=== PATIENT | female | born 1960 | race Caucasian/White ===

== ENCOUNTER 2016-04-18 16:00 | Outpatient (RCR) | payer BC | END 2016-06-06 10:26 | disposition home or self-care (01) | LOC: PT 16:00 | DX: M54.5 Low back pain (principal) ==

== ENCOUNTER → 2016-05-24 | Outpatient (CLI) | payer BC | END | disposition home or self-care (01) | LOC: PT 11:11 ==

== ENCOUNTER 2016-06-18 12:50 | Outpatient (RCR) | payer BC | END 2016-09-16 | disposition home or self-care (01) | LOC: PT | DX: M16.12 Unilateral primary osteoarthritis, left hip (principal); Z96.642 Presence of left artificial hip joint ==

== ENCOUNTER → 2016-12-20 | Outpatient (CLI) | payer BC | LOC: LAB 12:02 | DX: E03.9 Hypothyroidism, unspecified (principal); F41.8 Other specified anxiety disorders ==

== ENCOUNTER → 2017-03-29 | Outpatient (CLI) | payer BC | LOC: LAB 12:08 | DX: E03.4 Atrophy of thyroid (acquired) (principal) ==

== ENCOUNTER → 2017-06-17 | Outpatient (CLI) | payer OTHER ==
[2017-06-17 12:14] LABS: URINE APPEARANCE HAZY; URINE BILIRUBIN NEGATIVE (NEGATIVE); URINE BLOOD 50 ery/uL (NEGATIVE); URINE COLOR YELLOW; URINE GLUCOSE NEGATIVE (NEGATIVE); URINE KETONE NEGATIVE (NEGATIVE); URINE LEUKOCYTE ESTERASE NEGATIVE (NEGATIVE); URINE NITRATE NEGATIVE (NEGATIVE); URINE PROTEIN(semi-quant) NEGATIVE (NEGATIVE); URINE UROBILINOGEN NORMAL (NORMAL); URINE WBC 0-1 /hpf (0-3)
== END ==
LOC: LAB 11:43 → RAD 11:43
PROVIDERS: Family Medicine
DX: N32.89 Other specified disorders of bladder (principal); N28.82 Megaloureter; R30.0 Dysuria; K50.90 Crohn's disease, unspecified, without complications; R31.9 Hematuria, unspecified; Z96.643 Presence of artificial hip joint, bilateral; Z90.49 Acquired absence of other specified parts of digestive tract; Z90.710 Acquired absence of both cervix and uterus

== ENCOUNTER → 2017-06-19 | Outpatient (CLI) | payer OTHER ==
[2017-06-19 14:20] LABS: EOS # 0.1 (0.04-0.40); EOS % 0.7 % (1.0-5.0); HEMOGLOBIN 14.8 g/dL (12.5-16.0); MEAN CELL VOLUME 86 fl (78-100); MEAN CORPUSCULAR HEMOGLOBIN 28 pg (27-31); MEAN CORPUSCULAR HGB CONC 33 g/dL (33-37); MEAN PLATELET VOLUME 9.6 fl (7.4-10.4); MONO # 0.7 (0.20-0.80); NEU # 7.9 (1.40-6.50); PLATELET COUNT 396 K/mm3 (130-400); RED BLOOD COUNT 5.24 M/mm3 (4.10-5.30); RED CELL DISTRIBUTION WIDTH 14.9 % (11.5-14.5); WHITE BLOOD COUNT 10.7 K/mm3 (4.8-10.8)
[2017-06-19 14:42] LABS: ALBUMIN 4.5 g/dL (3.5-5.0); BUN/CREATININE RATIO 14.5 (6.0-26.0); CALCIUM 10.1 mg/dL (8.4-10.2); TOTAL BILIRUBIN 0.3 mg/dL (0.2-1.3); TOTAL PROTEIN 8.7 g/dL (6.3-8.2)
[2017-06-19 14:53] LABS: CLUE CELLS PRESENT (Not Observd)
[2017-06-19 15:50] LABS: ERYTHROCYTE SEDIMENTATION RATE 19 mm/hr (0-30)
== END ==
LOC: LAB 13:37
PROVIDERS: Family Medicine
DX: R10.11 Right upper quadrant pain (principal); K50.90 Crohn's disease, unspecified, without complications; N89.8 Other specified noninflammatory disorders of vagina
CPT/HCPCS: Q0111

== ENCOUNTER → 2017-06-21 | Outpatient (CLI) | payer OTHER | LOC: RAD 08:25 | DX: N76.0 Acute vaginitis (principal); Z96.643 Presence of artificial hip joint, bilateral | CPT/HCPCS: Q9967 ==

== ENCOUNTER → 2018-01-03 | Outpatient (CLI) | payer OTHER | LOC: RAD 17:11 | DX: M79.641 Pain in right hand (principal); M79.644 Pain in right finger(s); W19.XXXA Unspecified fall, initial encounter ==

== ENCOUNTER → 2018-01-06 | Outpatient (CLI) | payer OTHER | LOC: RAD 16:00 | DX: S62.174A Nondisplaced fracture of trapezium [larger multangular], right wrist, initial encounter for closed fracture (principal) ==

== ENCOUNTER → 2018-02-05 | Outpatient (CLI) | payer OTHER | LOC: LAB 13:01 | DX: R30.0 Dysuria (principal); R31.9 Hematuria, unspecified ==

== ENCOUNTER → 2018-06-20 | Outpatient (CLI) | payer OTHER ==
[2018-06-20 11:11] LABS: EOS # 0.1 (0.04-0.40); EOS % 1.7 % (1.0-5.0); HEMATOCRIT 43.9 % (37.0-47.0); HEMOGLOBIN 14.2 g/dL (12.5-16.0); LYMPH# 1.5 (1.50-4.00); MEAN CELL VOLUME 85 fl (78-100); MEAN CORPUSCULAR HEMOGLOBIN 28 pg (27-31); MEAN CORPUSCULAR HGB CONC 32 g/dL (33-37); MEAN PLATELET VOLUME 9.4 fl (7.4-10.4); MONO # 0.5 (0.20-0.80); NEU # 4.3 (1.40-6.50); PLATELET COUNT 313 K/mm3 (130-400); RED BLOOD COUNT 5.14 M/mm3 (4.10-5.30); RED CELL DISTRIBUTION WIDTH 14.3 % (11.5-14.5); WHITE BLOOD COUNT 6.5 K/mm3 (4.8-10.8)
[2018-06-20 11:19] LABS: ALBUMIN 4.6 g/dL (3.5-5.0); CALCIUM 9.1 mg/dL (8.4-10.2); POTASSIUM 4.2 mmol/L (3.6-5.0); TOTAL BILIRUBIN 0.5 mg/dL (0.2-1.3); TOTAL PROTEIN 8.4 g/dL (6.3-8.2)
== END ==
LOC: LAB 10:44
PROVIDERS: Family Medicine
DX: J32.9 Chronic sinusitis, unspecified (principal); K50.90 Crohn's disease, unspecified, without complications; E66.9 Obesity, unspecified; E03.4 Atrophy of thyroid (acquired)

== ENCOUNTER → 2018-09-26 | Outpatient (CLI) | payer OTHER | LOC: LAB 15:57 | DX: E03.4 Atrophy of thyroid (acquired) (principal) ==

== ENCOUNTER → 2019-08-03 | Outpatient (CLI) | payer OTHER | LOC: RAD 13:29 | DX: M19.032 Primary osteoarthritis, left wrist (principal); M19.042 Primary osteoarthritis, left hand ==

== ENCOUNTER → 2019-10-21 | Outpatient (CLI) | payer OTHER ==
[2019-10-21 11:38] LABS: EOS # 0.1 (0.04-0.40); EOS % 2.1 % (1.0-5.0); HEMATOCRIT 44.1 % (37.0-47.0); HEMOGLOBIN 14.5 g/dL (12.5-16.0); LYMPH# 1.4 (1.50-4.00); MEAN CELL VOLUME 88 fl (78-100); MEAN CORPUSCULAR HEMOGLOBIN 29 pg (27-31); MEAN CORPUSCULAR HGB CONC 33 g/dL (33-37); MEAN PLATELET VOLUME 8.9 fl (7.4-10.4); MONO # 0.5 (0.20-0.80); NEU # 4.2 (1.40-6.50); PLATELET COUNT 334 K/mm3 (130-400); RED BLOOD COUNT 5.01 M/mm3 (4.10-5.30); RED CELL DISTRIBUTION WIDTH 14.3 % (11.5-14.5); WHITE BLOOD COUNT 6.3 K/mm3 (4.8-10.8)
[2019-10-21 11:44] LABS: ALBUMIN 4.3 g/dL (3.5-5.0); POTASSIUM 4.1 mmol/L (3.5-5.1)
[2019-10-21 11:45] LABS: CALCIUM 9.6 mg/dL (8.3-10.5)
[2019-10-21 11:47] LABS: TOTAL PROTEIN 8.2 g/dL (6.4-8.3)
[2019-10-21 11:48] LABS: TOTAL BILIRUBIN 0.5 mg/dL (0.2-1.2)
== END ==
LOC: LAB 11:23
PROVIDERS: Family Medicine
DX: Z00.00 Encounter for general adult medical examination without abnormal findings (principal); E03.4 Atrophy of thyroid (acquired); E78.5 Hyperlipidemia, unspecified; R73.9 Hyperglycemia, unspecified

== ENCOUNTER → 2019-11-26 | Outpatient (CLI) | payer OTHER ==
[2019-11-26 15:23] LABS: HEMATOCRIT 40.8 % (37.0-47.0); HEMOGLOBIN 13.3 g/dL (12.5-16.0); MEAN CELL VOLUME 89 fl (78-100); MEAN CORPUSCULAR HEMOGLOBIN 29 pg (27-31); MEAN CORPUSCULAR HGB CONC 33 g/dL (33-37); MEAN PLATELET VOLUME 9.1 fl (7.4-10.4); PLATELET COUNT 361 K/mm3 (130-400); RED BLOOD COUNT 4.61 M/mm3 (4.10-5.30); RED CELL DISTRIBUTION WIDTH 14.3 % (11.5-14.5); WHITE BLOOD COUNT 15.4 K/mm3 (4.8-10.8)
[2019-11-26 15:41] LABS: D-DIMER 0.39 mg/L FEU (0.15-0.50)
[2019-11-26 15:48] LABS: LYMPHOCYTE 12 % (20-51); MONOCYTE 6 % (3-10); NEUTROPHILS 82 % (42-75)
== END ==
LOC: LAB 15:06
PROVIDERS: Nurse Practitioner Family
DX: R07.9 Chest pain, unspecified (principal)

== ENCOUNTER → 2020-05-20 | Outpatient (CLI) | payer OTHER ==
[2019-12-01 21:10] VITALS: BP 140/92
[~2020-05-20] MED LIST: ARMOUR THYROID120 M1 PO; BUDESONIDE0.25 MG/2 IH; NAPROXEN500 MG PO; NP THYROID90 MG PO; VENLAFAXINE HCL75 M3 PO
== END ==
LOC: RAD 14:00
DX: K50.90 Crohn's disease, unspecified, without complications (principal)
CPT/HCPCS: Q9967

== ENCOUNTER 2020-08-30 10:26 | Emergency (ER) | payer OTHER ==
[2020-08-30 11:51] LABS: BASO # 0.03 (0.02-0.10); EOS # 0.09 (0.04-0.40); EOS % 1.3 % (1.0-5.0); HEMATOCRIT 42.7 % (37.0-47.0); HEMOGLOBIN 14.2 g/dL (12.5-16.0); LYMPH# 1.27 (1.50-4.00); MEAN CELL VOLUME 86 fl (78-100); MEAN CORPUSCULAR HEMOGLOBIN 29 pg (27-31); MEAN CORPUSCULAR HGB CONC 33 g/dL (33-37); MEAN PLATELET VOLUME 9.2 fl (7.4-10.4); MONO # 0.43 (0.20-0.80); NEU # 5.32 (1.40-6.50); PLATELET COUNT 248 K/mm3 (130-400); RED BLOOD COUNT 4.94 M/mm3 (4.10-5.30); RED CELL DISTRIBUTION WIDTH 13.6 % (11.5-14.5); WHITE BLOOD COUNT 7.2 K/mm3 (4.8-10.8)
[2020-08-30 12:02] LABS: ALBUMIN 4.5 g/dL (3.5-5.0); POTASSIUM 4.2 mmol/L (3.5-5.1); SODIUM 139 mmol/L (136-145)
[2020-08-30 12:03] LABS: CALCIUM 9.5 mg/dL (8.3-10.5)
[2020-08-30 12:04] LABS: GLUCOSE 98 mg/dL (65-105); TOTAL PROTEIN 8.2 g/dL (6.4-8.3)
[2020-08-30 12:05] LABS: CARBON DIOXIDE 21 mmol/L (22-29)
[2020-08-30 12:06] LABS: TOTAL BILIRUBIN 0.4 mg/dL (0.2-1.2)
[2020-08-30 12:10] LABS: AST-SGOT 21 U/L (5-34)
[2020-08-30 12:11] LABS: ALT/SGPT 24 U/L (0-55)
[2020-08-30] MEDS ORDERED: VENLAFAXINE H37.5 M4 PO (12:14)
[2020-08-30] MEDS ORDERED: ARMOUR THYROID PO (12:17)
[2020-08-30 12:26] LABS: TROPONIN-I < 0.03 ng/mL (<0.030)
[2020-08-30 13:18] VITALS: BP 139/82
== END 2020-08-30 13:18 | disposition home or self-care (01) ==
LOC: ED 10:26
PROVIDERS: Nurse Practitioner Family
DX: R07.89 Other chest pain (principal); I10 Essential (primary) hypertension; E03.9 Hypothyroidism, unspecified; Z88.1 Allergy status to other antibiotic agents
CPT/HCPCS: J1885; J2405; J7030

== ENCOUNTER → 2020-09-02 | Outpatient (CLI) | payer OTHER ==
[2020-08-30 13:18] VITALS: BP 139/82
[~2020-09-02] MED LIST changes: +ARMOUR THYROID PO; +VENLAFAXINE H37.5 M4 PO
== END ==
LOC: RAD 16:21
DX: R41.82 Altered mental status, unspecified (principal)

== ENCOUNTER → 2020-09-13 | Outpatient (CLI) | payer OTHER ==
[2020-08-30 13:18] VITALS: BP 139/82
== END ==
LOC: RAD 09:04
DX: I63.81 Other cerebral infarction due to occlusion or stenosis of small artery (principal)

== ENCOUNTER → 2020-09-16 | Outpatient (CLI) | payer OTHER ==
[2020-08-30 13:18] VITALS: BP 139/82
== END ==
LOC: PT 10:04 → CARDREHAB 10:59 → PT 15:56
DX: R07.9 Chest pain, unspecified (principal)
CPT/HCPCS: A9500

== ENCOUNTER → 2020-11-28 | Outpatient (CLI) | payer OTHER ==
[2020-11-28 10:03] LABS: BASO # 0.01 (0.02-0.10); EOS # 0.04 (0.04-0.40); EOS % 0.8 % (1.0-5.0); HEMATOCRIT 45.2 % (37.0-47.0); HEMOGLOBIN 14.4 g/dL (12.5-16.0); MEAN CELL VOLUME 87 fl (78-100); MEAN CORPUSCULAR HEMOGLOBIN 28 pg (27-31); MEAN CORPUSCULAR HGB CONC 32 g/dL (33-37); MEAN PLATELET VOLUME 9.2 fl (7.4-10.4); NEU # 3.52 (1.40-6.50); PLATELET COUNT 216 K/mm3 (130-400); RED BLOOD COUNT 5.18 M/mm3 (4.10-5.30); RED CELL DISTRIBUTION WIDTH 13.6 % (11.5-14.5)
[2020-11-28 10:14] LABS: POTASSIUM 4.1 mmol/L (3.5-5.1)
[2020-11-28 10:15] LABS: CALCIUM 9.2 mg/dL (8.3-10.5)
[2020-11-28 10:16] LABS: TOTAL PROTEIN 7.9 g/dL (6.4-8.3)
[2020-11-28 10:18] LABS: TOTAL BILIRUBIN 0.4 mg/dL (0.2-1.2)
[2020-11-29 05:53] LABS: T3 TOTAL 319 ng/dL (60-180)
== END ==
LOC: LAB 09:39
PROVIDERS: Family Medicine
DX: Z00.00 Encounter for general adult medical examination without abnormal findings (principal); E78.5 Hyperlipidemia, unspecified; E03.4 Atrophy of thyroid (acquired)

== ENCOUNTER → 2020-12-06 | Outpatient (CLI) | payer OTHER | LOC: RAD 14:04 | DX: U07.1 COVID-19 (principal) ==

== ENCOUNTER → 2021-02-08 | Outpatient (CLI) | payer OTHER | LOC: RAD 16:02 | DX: M25.551 Pain in right hip (principal); Z96.643 Presence of artificial hip joint, bilateral ==

== ENCOUNTER → 2021-02-17 | Outpatient (CLI) | payer OTHER | LOC: RAD 14:16 | DX: R51.9 Headache, unspecified (principal) ==

== ENCOUNTER 2021-03-03 14:30 | Outpatient (RCR) | payer OTHER | END 2021-03-03 17:00 | disposition home or self-care (01) | LOC: PT 14:30 | DX: M54.50 Low back pain, unspecified (principal) ==

== ENCOUNTER → 2021-03-06 | Outpatient (CLI) | payer OTHER ==
[2021-03-06 14:24] LABS: CLUE CELLS NOT OBSERVED (Not Observd)
== END ==
LOC: LAB 13:11
PROVIDERS: Nurse Practitioner
DX: N89.8 Other specified noninflammatory disorders of vagina (principal)
CPT/HCPCS: Q0111

== ENCOUNTER → 2021-03-24 | Outpatient (CLI) | payer OTHER ==
[2021-03-25 09:12] LABS: HERPES SIMPLEX TYPE 1 IGG INTP Positive (Negative); HERPES SIMPLEX TYPE 2 IGG 0.75 Index (())
== END ==
LOC: LAB 15:26
PROVIDERS: Family Medicine
DX: B00.9 Herpesviral infection, unspecified (principal)

== ENCOUNTER 2021-06-23 14:10 | Emergency (ER) | payer OTHER ==
[~2021-06-23] VITALS: Ht 165.1 cm; Wt 113.4 kg
[2021-06-23] MEDS ORDERED: UNITHROID175 MCG PO (14:27)
[2021-06-23] MEDS ORDERED: AMOXICILLIN AND1 TA2 PO (14:27)
[2021-06-23 14:58] LABS: BASO # 0.01 K/mm3 (0.02-0.10); EOS # 0.12 K/mm3 (0.04-0.40); EOS % 0.9 % (1.0-5.0); HEMATOCRIT 45.1 % (37.0-47.0); HEMOGLOBIN 15.1 g/dL (12.5-16.0); LYMPH# 2.76 K/mm3 (1.50-4.00); MEAN CELL VOLUME 87 fl (78-100); MEAN CORPUSCULAR HEMOGLOBIN 29 pg (27-31); MEAN CORPUSCULAR HGB CONC 34 g/dL (33-37); MEAN PLATELET VOLUME 9.5 fl (7.4-10.4); MONO # 0.92 K/mm3 (0.20-0.80); NEU # 8.75 K/mm3 (1.40-6.50); PLATELET COUNT 326 K/mm3 (130-400); RED BLOOD COUNT 5.21 M/mm3 (4.10-5.30); RED CELL DISTRIBUTION WIDTH 13.8 % (11.5-14.5); WHITE BLOOD COUNT 12.7 K/mm3 (4.8-10.8)
[2021-06-23 15:06] LABS: ALBUMIN 4.3 g/dL (3.4-4.8)
[2021-06-23 15:08] LABS: CALCIUM 9.9 mg/dL (8.3-10.5)
[2021-06-23 15:09] LABS: TOTAL PROTEIN 7.7 g/dL (6.2-8.1)
[2021-06-23 15:11] LABS: TOTAL BILIRUBIN 0.4 mg/dL (0.2-1.2)
[2021-06-23 15:27] LABS: D-DIMER 0.46 mg/L FEU (0.15-0.50)
[2021-06-23] MEDS ORDERED: PREDNISONE20 MG PO (16:13)
[2021-06-23] MEDS ORDERED: MORGIDOX 1X100100 MG PO (16:13)
[2021-06-23 16:20] VITALS: BP 125/87
[2021-06-23 18:53] LABS: URINE APPEARANCE HAZY; URINE BILIRUBIN NEGATIVE (NEGATIVE); URINE BLOOD 50 ery/uL (NEGATIVE); URINE COLOR YELLOW; URINE GLUCOSE NEGATIVE (NEGATIVE); URINE KETONE NEGATIVE (NEGATIVE); URINE LEUKOCYTE ESTERASE NEGATIVE (NEGATIVE); URINE NITRATE NEGATIVE (NEGATIVE); URINE PROTEIN(semi-quant) TRACE (NEGATIVE); URINE UROBILINOGEN NORMAL (NORMAL)
[2021-06-23 18:54] LABS: URINE WBC 0-1 /hpf (0-3)
== END 2021-06-23 16:29 | disposition home or self-care (01) ==
LOC: ED 14:10
PROVIDERS: Nurse Practitioner
DX: U09.9 Post COVID-19 condition, unspecified (principal)

== ENCOUNTER → 2021-11-28 | Outpatient (CLI) | payer OTHER ==
[~2021-11-28] MED LIST changes: +AMOXICILLIN AND1 TA2 PO; +MORGIDOX 1X100100 MG PO; +PREDNISONE20 MG PO; +UNITHROID175 MCG PO
[2021-11-28 11:36] LABS: ALBUMIN 4.1 g/dL (3.4-4.8)
[2021-11-28 11:37] LABS: POTASSIUM 4.5 mmol/L (3.5-5.1)
[2021-11-28 11:38] LABS: CALCIUM 9.4 mg/dL (8.3-10.5)
[2021-11-28 11:39] LABS: TOTAL PROTEIN 7.5 g/dL (6.2-8.1)
[2021-11-28 11:41] LABS: TOTAL BILIRUBIN 0.5 mg/dL (0.2-1.2)
== END ==
LOC: LAB 11:14
PROVIDERS: Family Medicine
DX: R10.31 Right lower quadrant pain (principal)

== ENCOUNTER → 2021-11-29 | Outpatient (CLI) | payer OTHER | LOC: RAD 08:59 | DX: R10.31 Right lower quadrant pain (principal) | CPT/HCPCS: Q9967 ==

== ENCOUNTER → 2022-03-23 | Outpatient (CLI) | payer OTHER ==
[2022-03-23 17:18] LABS: ALBUMIN 3.7 g/dL (3.4-4.8); POTASSIUM 3.6 mmol/L (3.5-5.1)
[2022-03-23 17:19] LABS: CALCIUM 9.8 mg/dL (8.3-10.5)
[2022-03-23 17:20] LABS: TOTAL PROTEIN 7.3 g/dL (6.2-8.1)
[2022-03-23 17:22] LABS: TOTAL BILIRUBIN 0.3 mg/dL (0.2-1.2)
== END ==
LOC: LAB 15:03
PROVIDERS: Nurse Practitioner
DX: I25.10 Atherosclerotic heart disease of native coronary artery without angina pectoris (principal)

== ENCOUNTER 2022-05-04 16:16 | Emergency (ER) | payer OTHER ==
[~2022-05-04] VITALS: Ht 170.2 cm; Wt 113.2 kg
[2022-05-04 17:46] LABS: BASO # 0.03 K/mm3 (0.02-0.10); EOS # 0.07 K/mm3 (0.04-0.40); EOS % 0.7 % (1.0-5.0); HEMATOCRIT 40.2 % (37.0-47.0); HEMOGLOBIN 13.5 g/dL (12.5-16.0); LYMPH# 1.86 K/mm3 (1.50-4.00); MEAN CELL VOLUME 85 fl (78-100); MEAN CORPUSCULAR HEMOGLOBIN 29 pg (27-31); MEAN CORPUSCULAR HGB CONC 34 g/dL (33-37); MEAN PLATELET VOLUME 8.8 fl (7.4-10.4); NEU # 7.11 K/mm3 (1.40-6.50); PLATELET COUNT 294 K/mm3 (130-400); RED BLOOD COUNT 4.71 M/mm3 (4.10-5.30); RED CELL DISTRIBUTION WIDTH 13.8 % (11.5-14.5)
[2022-05-04 17:58] LABS: ALBUMIN 3.7 g/dL (3.4-4.8); POTASSIUM 3.4 mmol/L (3.5-5.1); SODIUM 139 mmol/L (136-145)
[2022-05-04 18:00] LABS: GLUCOSE 92 mg/dL (65-105); TOTAL PROTEIN 7.2 g/dL (6.2-8.1)
[2022-05-04 18:01] LABS: CARBON DIOXIDE 23 mmol/L (23-31)
[2022-05-04 18:02] LABS: TOTAL BILIRUBIN 0.4 mg/dL (0.2-1.2)
[2022-05-04 18:06] LABS: AST-SGOT 18 U/L (5-34)
[2022-05-04 18:07] LABS: ALT/SGPT 24 U/L (0-55)
[2022-05-04 18:15] LABS: TROPONIN-I < 0.030 ng/mL (<0.030)
[2022-05-04 18:26] LABS: URINE APPEARANCE CLEAR; URINE BILIRUBIN NEGATIVE (NEGATIVE); URINE BLOOD 250 ery/uL (NEGATIVE); URINE COLOR YELLOW; URINE GLUCOSE NEGATIVE (NEGATIVE); URINE KETONE NEGATIVE (NEGATIVE); URINE LEUKOCYTE ESTERASE NEGATIVE (NEGATIVE); URINE MUCUS PRESENT (NOT PRESENT); URINE NITRATE NEGATIVE (NEGATIVE); URINE PROTEIN(semi-quant) 3+ (NEGATIVE); URINE UROBILINOGEN NORMAL (NORMAL)
[2022-05-04 19:45] VITALS: BP 170/82
== END 2022-05-04 21:45 | disposition home or self-care (01) ==
LOC: ED 16:16
PROVIDERS: Family Medicine; Physician Assistant
DX: R07.89 Other chest pain (principal); J06.9 Acute upper respiratory infection, unspecified; Z20.822 Contact with and (suspected) exposure to COVID-19; Z28.310 Unvaccinated for COVID-19

== ENCOUNTER → 2022-06-08 | Outpatient (CLI) | payer OTHER ==
[~2022-06-08] MED LIST changes: +NITROSTAT0.4 M1 SL; +PAROXETINE HYDR10 MG PO; +RISPERIDONE0.25 M2 PO
== END ==
LOC: RAD 07:23
DX: N20.0 Calculus of kidney (principal); N18.32 Chronic kidney disease, stage 3b

== ENCOUNTER → 2022-07-09 | Outpatient (CLI) | payer OTHER ==
[~2022-07-09] MED LIST changes: +BETAMETHASONE D1 CR2 TP; +FLUCONAZOLE100 MG PO; +MACROBID 1100 MG/CAP PO; +NEURONTIN300 MG/CAP
== END ==
LOC: LAB 16:07
DX: D72.829 Elevated white blood cell count, unspecified (principal)

== ENCOUNTER → 2022-12-18 | Outpatient (CLI) | payer OTHER ==
[~2022-12-18] MED LIST changes: +AZITHROMYCIN 250MGPK PO; +BENZONATATE100 M2 PO; +HCTZ 25MG25 MG PO; +NORCO 325 MG-51 TA1 PO; +PAROXETINE CR25 MG PO; +PAXIL10 M1 PO; +PREDNISONE20 M1 PO; +PROAIR HFA0.09 MG/AC IH; +PROBIOTIC1 EAC1 PO; +UNITHROID150 MCG PO; +VIBRAMYCIN HYC100 MG PO
[2022-12-18 15:35] LABS: BASO # 0.01 K/mm3 (0.02-0.10); EOS # 0.02 K/mm3 (0.04-0.40); EOS % 0.2 % (1.0-5.0); HEMATOCRIT 41.2 % (37.0-47.0); HEMOGLOBIN 13.2 g/dL (12.5-16.0); LYMPH# 1.03 K/mm3 (1.50-4.00); MEAN CELL VOLUME 90 fl (78-100); MEAN CORPUSCULAR HEMOGLOBIN 29 pg (27-31); MEAN CORPUSCULAR HGB CONC 32 g/dL (33-37); MEAN PLATELET VOLUME 8.9 fl (7.4-10.4); MONO # 0.41 K/mm3 (0.20-0.80); NEU # 9.47 K/mm3 (1.40-6.50); PLATELET COUNT 229 K/mm3 (130-400); RED BLOOD COUNT 4.56 M/mm3 (4.10-5.30); RED CELL DISTRIBUTION WIDTH 15.4 % (11.5-14.5); WHITE BLOOD COUNT 11.1 K/mm3 (4.8-10.8)
[2022-12-18 15:40] LABS: ALBUMIN 3.9 g/dL (3.4-4.8); POTASSIUM 4.8 mmol/L (3.5-5.1)
[2022-12-18 15:41] LABS: CALCIUM 9.8 mg/dL (8.3-10.5)
[2022-12-18 15:43] LABS: TOTAL PROTEIN 6.9 g/dL (6.2-8.1)
[2022-12-18 15:44] LABS: TOTAL BILIRUBIN 0.5 mg/dL (0.2-1.2)
== END ==
LOC: LAB 15:08
PROVIDERS: Family Medicine
DX: Z00.00 Encounter for general adult medical examination without abnormal findings (principal); E78.5 Hyperlipidemia, unspecified; E03.9 Hypothyroidism, unspecified; F41.8 Other specified anxiety disorders; E03.4 Atrophy of thyroid (acquired); F31.9 Bipolar disorder, unspecified; I11.0 Hypertensive heart disease with heart failure; I50.9 Heart failure, unspecified; K50.90 Crohn's disease, unspecified, without complications; E66.9 Obesity, unspecified; M18.9 Osteoarthritis of first carpometacarpal joint, unspecified; G25.81 Restless legs syndrome; R73.9 Hyperglycemia, unspecified

== ENCOUNTER → 2022-12-24 | Day surgery (SDC) | payer OTHER | END | disposition home or self-care (01) | LOC: MSO 10:04 | DX: Z12.11 Encounter for screening for malignant neoplasm of colon (principal); D12.5 Benign neoplasm of sigmoid colon; K63.5 Polyp of colon; E66.01 Morbid (severe) obesity due to excess calories | CPT/HCPCS: 00811; J2704; J3010; J7120 ==

== ENCOUNTER 2023-02-26 10:46 | Outpatient (RCR) | payer OTHER | END 2023-03-14 | disposition home or self-care (01) | LOC: PT | DX: M25.561 Pain in right knee (principal) ==

== ENCOUNTER 2023-03-15 08:00 | Outpatient (RCR) | payer OTHER | END 2023-04-14 | LOC: PT | DX: M25.561 Pain in right knee (principal) ==

== ENCOUNTER → 2023-05-13 | Outpatient (CLI) | payer OTHER | LOC: RAD 10:23 → LAB 10:23 | DX: J20.9 Acute bronchitis, unspecified (principal); R70.0 Elevated erythrocyte sedimentation rate; R79.82 Elevated C-reactive protein (CRP); R51.9 Headache, unspecified ==

== ENCOUNTER → 2023-06-17 | Outpatient (CLI) | payer OTHER ==
[2023-06-17 10:42] LABS: ALBUMIN 4.6 g/dL (3.4-4.8)
== END ==
LOC: LAB 10:21
PROVIDERS: Internal Medicine Nephrology
DX: N18.32 Chronic kidney disease, stage 3b (principal)

== ENCOUNTER → 2023-11-26 | Outpatient (CLI) | payer OTHER ==
[~2023-11-26] MED LIST changes: +DESVENLAFAXINE25 MG PO; +EMGALITY120 MG/1 M SQ; +LATANOPROST 2.2.5 ML OU; +TEGRETOL XR100 MG PO
== END ==
LOC: RAD 10:45
DX: R91.8 Other nonspecific abnormal finding of lung field (principal); M47.814 Spondylosis without myelopathy or radiculopathy, thoracic region

== ENCOUNTER → 2023-12-30 | Outpatient (CLI) | payer OTHER ==
[2023-12-30 12:10] LABS: ALBUMIN 3.9 g/dL (3.4-4.8)
[2023-12-30 12:12] LABS: CALCIUM 9.3 mg/dL (8.3-10.5)
== END ==
LOC: LAB 11:49
PROVIDERS: Internal Medicine Nephrology
DX: N18.32 Chronic kidney disease, stage 3b (principal)

== ENCOUNTER → 2024-05-21 | Outpatient (CLI) | payer OTHER ==
[~2024-05-21] MED LIST changes: +CYCLOBENZAPRINE10 M1 PO
[2024-05-21 13:07] LABS: D-DIMER 0.5 mg/L FEU (0.15-0.50)
== END ==
LOC: LAB 11:25
PROVIDERS: Nurse Practitioner
DX: R07.9 Chest pain, unspecified (principal)

== ENCOUNTER → 2024-06-12 | Outpatient (CLI) | payer OTHER ==
[~2024-06-12] VITALS: Ht 165.1 cm; Wt 117.5 kg
[~2024-06-12] MED LIST changes: +Regadenoson 0.08 MG/ML 5 ML VIAL IV SCH
== END ==
LOC: CARDREHAB 08:50
DX: R07.9 Chest pain, unspecified (principal)
CPT/HCPCS: A9500; J2785

== ENCOUNTER → 2024-06-26 | Outpatient (CLI) | payer OTHER ==
[~2024-06-26] MED LIST changes: -Regadenoson 0.08 MG/ML 5 ML VIAL IV SCH
[2024-06-26 11:36] LABS: ALBUMIN 4.2 g/dL (3.4-4.8)
[2024-06-26 11:38] LABS: CALCIUM 9.9 mg/dL (8.3-10.5)
== END ==
LOC: LAB 11:05
PROVIDERS: Registered Nurse
DX: Z01.89 Encounter for other specified special examinations (principal)